=== PATIENT | male | born 1950 | race Caucasian/White ===

== ENCOUNTER → 2021-03-10 | Outpatient (POV) | payer OTHER ==
[~2021-03-10] VITALS: Ht 172.7 cm; Wt 113.6 kg
[2021-03-10 12:50] VITALS: BP 162/82
== END ==
LOC: M IRPOV 11:36
PROVIDERS: ATTEND Radiology Diagnostic Radiology
DX: L97.529 Non-pressure chronic ulcer of other part of left foot with unspecified severity (principal); E11.59 Type 2 diabetes mellitus with other circulatory complications; I11.0 Hypertensive heart disease with heart failure; I25.10 Atherosclerotic heart disease of native coronary artery without angina pectoris; I50.9 Heart failure, unspecified; Z79.82 Long term (current) use of aspirin; Z87.891 Personal history of nicotine dependence

== ENCOUNTER → 2021-03-18 | Outpatient (CLI) | payer OTHER ==
[~2021-03-18] MED LIST: ALOG6.25 PO; ASPI-161 PO; ATOR80TA59 PO; CARV12.5 PO; CEPH500C PO; D3 +TAB PO; FURO20TA2 PO; FURO40TA2 PO; GLIP10TA6 PO; ISOS1TAB35 PO; ISOVUE-300 61% 50ML VIAL As Ordered ONE; LIDOCAINE 1% MDV 20ML VIAL As Ordered ONE; METF10004 PO; MIDAZOLAM INJ 2MG/2ML VIAL (J2250 PER 1MG) As Ordered ONE; NITR0.3S4 SL; NS 1,000 ML IV SCH; ONDANSETRON 4MG/2ML VIAL IV PRN; OXYB10TA23 PO; OXYC-517 PO; PANT40TA29 PO; PATIENT COMMENT; PERCOCET 5MG/325MG TAB As Ordered ONE; RAMI1CAP22 PO; TAMS1CAP17 PO; TRAM50TA2 PO; diphenhydrAMINE 50MG/ML VIAL (J1200) As Ordered ONE; fentaNYL 100 MCG/2 ML INJECTION As Ordered ONE
[2021-03-18] MEDS: PERCOCET 5MG/325MG TAB PO PRN (12:57)
[2021-03-18 13:40] VITALS: BP 143/71
== END ==
LOC: M IRPRO 08:39
PROVIDERS: ATTEND Radiology Diagnostic Radiology
DX: I70.249 Atherosclerosis of native arteries of left leg with ulceration of unspecified site (principal); L97.929 Non-pressure chronic ulcer of unspecified part of left lower leg with unspecified severity